=== PATIENT | female | born 1975 | race American Indian/Alaskan Native ===

== ENCOUNTER 2017-10-09 07:38 | Outpatient (CLI) | payer MEDICAID ==
[~2017-10-09 07:38] MED LIST: DIPRIVAN 10 MG/ML IV ONE
[2017-10-09 08:22] LABS: Blood Urea Nitrogen 11 mg/dL (7-17)
--- NOTE | 2017-10-09 14:35 | Magnetic Resonance Report ---
MRI LUMBAR SPINE WITH AND WITHOUT CONTRAST HISTORY: Lumbar radiculopathy. TECHNIQUE: axial T1, T2. sagittal T1,T2, STIR. Post contrast T1 sat fat and axial and sagittal planes. COMPARISON: none. FINDINGS: The conus terminates at L1. No signal abnormality or mass. The cauda equina is within normal limits. No central canal stenosis. Normal height and alignment of the lumbar vertebra. The facet joints are in appropriate relationship. Normal bone marrow signal. No acute fracture or suspicious bone lesion. Moderate hypertrophic facet arthropathy is noted at L3-4 and L4-5. The discs are within normal limits. L1-2: No abnormality. L2-3: No abnormality. L3-4: No abnormality with the disc. Mild facet arthropathy. L4-5: No abnormality with the disc. Severe facet arthropathy with hypertrophic changes. There is moderate widening and fluid within the facet joints. Bilateral neural foraminal narrowing is estimated at 50%. L5-S1: No abnormality with the disc. Mild facet arthropathy. No abnormal enhancement following IV gadolinium. IMPRESSION: Moderate to severe facet arthropathy which is most pronounced at the L4-5 level as described. There is mild bilateral neural foraminal narrowing at this level. No evidence for central canal stenosis, fracture or herniation.
== END 2017-10-09 07:39 | disposition home or self-care (01) ==
LOC: MRI 07:38
PROVIDERS: ATTEND General Practice
DX: M54.16 Radiculopathy, lumbar region (principal); M12.88 Other specific arthropathies, not elsewhere classified, other specified site; I10 Essential (primary) hypertension
CPT/HCPCS: 36415; 72158; 82565; 84520; A9577; J2704